=== PATIENT | male | born 1995 | race Caucasian/White ===

== ENCOUNTER 2022-09-27 17:11 | Emergency (ER) | payer OTHER, SELFPAY ==
--- NOTE | ~2022-09-27 | XR_ITS ---
EXAMINATION: XR shoulder RT min 2V DATE: 09/27/2022 18:15 INDICATION: Mechanical injury to the right shoulder with posterior right shoulder pain TECHNIQUE: AP internally and externally rotated, AP oblique externally rotated and transscapular Y vi ews of the affected shoulder were obtained. COMPARISON: None FINDINGS: Normal alignment. No fracture. Glenohumeral joint is normal. Acromioclavicular joint is normal. Soft tissues are unremarkable. Visualized portion of the lungs are clear. IMPRESSION: Normal right shoulder radiographs. Reviewed, dictated and finalized at location A.
[2022-09-27 17:13] VITALS: BP 139/86; PULSE 61; RESP 18; TEMP 36.6; O2SAT 99
--- NOTE | 2022-09-27 17:49 | ED.UPPEXIN ---
HPI - Extremity Injury (Upper) General Chief Complaint: Extremity Injury, Upper Stated Complaint: right shoulder pain Time Seen by Provider: 09/27/22 17:32 History of Present Illness HPI narrative: 27-year-old white male has had pain for the last 2 days of the right shoulder, reports no specific injury leading up to it, it just hurts. 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 He reports the pain is up in his shoulder, front top and back. Denies any specific injury in the past. Reports it hurts to move his arm in any direction at the shoulder. Denies any numbness or tingling of the rest of the extremity. Related Data Home Medications Medication Instructions Recorded Confirmed omeprazole 40 mg capsule,delayed 40 mg PO DAILY 09/27/22 09/27/22 release Allergies Allergy/AdvReac Type Severity Reaction Status Date / Time No Known Allergies Allergy Verified 09/27/22 17:24 Review of Systems Review of Systems: All systems reviewed & are unremarkable except as noted in HPI and below (in HPI) Exam Const: General: cooperative and no acute distress HENMT: Head: normal to inspection Face and sinus: normal facial exam Eyes: General: appearance normal, both eyes and all related structures Neck: Neck: normal visual inspection and full ROM Chest: Chest palpation & inspection: normal inspection of the chest Resp: Effort & Inspection: normal respiratory effort and able to speak in complete sentences Cardio: Jugular venous distension: no JVD Rate: regular rate Rhythm: regular rhythm Skin: General skin exam: normal color and no rashes or lesions noted Neuro: General: patient oriented x3 and Normal light touch and pain sensation Cranial nerves: Yes CN's II-XII intact bilaterally, Yes facial sensation intact/muscles of mastication intact and Yes Bilaterally intact EOM present Extrem: General: normal to inspection and full ROM Right upper extremity: full ROM, normal capillary refill and shoulder/upper arm ( there is diffuse tenderness over the anterior superior and posterior aspec); no edema and joint enlargement noted Other: there is good range of motion of the right shoulder, although with discomfort. There is no specific point tenderness, impingement test is negative distal neurovascular is intact Psych: Appearance: grossly normal Mental Status: mental status grossly normal Speech and movement: Normal speech and movement present Affect: normal affect Attitude: cooperative Thought process: Normal thought process present Insight: Good insight present (Psych) Judgement: Good judgement present (Psych) Course Course Emergency Course: differential diagnosis is includes but not limited to rotator cuff injury, bursitis, tendinitis, overuse inflammation of the shoulder, less likely fracture, less likely AC impingement. Will get x-ray x-rays are unremarkable, discussed with patient the need to rest the shoulder for few days, place in a sling, nonsteroidals, and follow-up with Ortho. Work note given for light duty differential diagnosis, workup, review of images, radiology report, initial treatment, diagnosis, treatment plan and disposition complexity and risk is low to moderate Vital Signs Vital signs: Vital Signs Temperature 36.6 C 09/27/22 17:13 Pulse Rate 61 09/27/22 17:13 Respiratory Rate 18 09/27/22 17:13 Blood Pressure 139/86 09/27/22 17:13 Pulse Oximetry 99 09/27/22 17:13 Oxygen Delivery Room Air 09/27/22 17:13 Temperature 36.8 C 09/27/22 19:50 Pulse Rate 49 L 09/27/22 19:50 Respiratory Rate 17 09/27/22 19:50 Blood Pressure 123/81 09/27/22 19:50 Pulse Oximetry 100 09/27/22 19:50 Oxygen Delivery Room Air 09/27/22 19:50 Discharge Plan Discharge Clinical Impression: Acute shoulder bursitis Patient Disposition: Home, Self-Care Condition: Stable Instructi
--- NOTE | 2022-09-27 19:16 | PC.NURSE ---
Assumed care of pt. Agree with previous shift assessment. Awaiting further orders at this time. Pt voices no new needs at this time.
[2022-09-27 19:25] VITALS: BP 126/78; PULSE 58; RESP 16; TEMP 36.4; O2SAT 98
--- NOTE | 2022-09-27 19:27 | PC.NURSE ---
Per Dr. Hurtado apply sling to RUE. Sling applied. Pt tolerates well. Pt verbalized understanding of use. Distal CMS intact post placement.
[2022-09-27 19:50] VITALS: BP 123/81; PULSE 49; RESP 17; TEMP 36.8; O2SAT 100
== END 2022-09-27 19:54 | disposition home or self-care (01) ==
PROVIDERS: Emergency Provider Emergency Medicine; PCP Internal Medicine
DX: M75.51 Bursitis of right shoulder (principal)
CPT/HCPCS: 73030; 99283

== ENCOUNTER 2023-08-15 10:57 | Outpatient (CLI) | payer OTHER, SELFPAY ==
--- NOTE | ~2023-08-15 | XR_ITS ---
EXAM: XR hip LT min 2V DATE: 08/15/2023 11:44 HISTORY: tailbone pain radiates to LT hip/groin, NKI . COMPARISON: None available. FINDINGS: Normal mineralization. No fracture or dislocation. No lytic or blastic lesion. Joint space s are maintained. No erosion or periosteal change. Soft tissues within normal limits. IMPRESSION: Normal left hip radiograph findings. Reviewed, dictated and finalized at location K.
--- NOTE | ~2023-08-15 | XR_ITS ---
EXAM: XR lumbar spine 2-3V DATE: 08/15/2023 11:44 HISTORY: LEFT HIP PAIN . COMPARISON: None available. FINDINGS: 5 nonrib-bearing lumbar-type vertebral bodies. Pedicles intact. Normal vertebral body alig nment. Mild anterior wedge deformity at L1, the remaining vertebral body heights are preserved. Mild height loss at L5-S1. Mild multilevel marginal osteophytosis. Normal facets and posterior elements. N o fracture or dislocation. IMPRESSION: Mild anterior wedge deformity at L1, difficulty by acute pain/tenderness or history of prior trauma. Mild multilevel degenerative disc disease. Reviewed, dictated and finalized at location K. IMPRESSION: Mild anterior wedge deformity at L1, difficulty by acute pain/tenderness or his tory of prior trauma. Mild multilevel degenerative disc disease.
[2023-08-15 11:20] LABS: Appearance Urine Clear (Clear); Bilirubin Urine Negative (Negative); Blood Urine Negative (Negative); Color Urine Light Yellow (Yellow); Glucose Urine UA Negative (Negative); Ketones Urine Negative (Negative); Leukocyte Esterase Ur Negative (Negative); Nitrate Urine Negative (Negative); Protein Urine Negative (Negative); Specific Grav Ur <= 1.005 (1.010-1.020); Urobilinogen Urine 0.2 mg/dL (0.2-1.0)
[2023-08-15 11:24] LABS: Add Urine Microscopic? NO
[2023-08-15 11:25] LABS: Basophils Absolute Auto 0.06 K/mm3 (0.00-0.10); Eosinophils Absolute Auto 0.19 K/mm3 (0.02-0.50); Eosinophils Percent Auto 3.3 % (1.0-6.0); Hematocrit 46.6 % (40.0-54.0); Hemoglobin 15.5 g/dL (14.0-18.0); Immature Granulocyte Absolute 0.03 K/mm3 (0.00-0.00); Immature Granulocyte Percent A 0.5 % (0.0-0.0); Lymphocytes Absolute Auto 1.68 K/mm3 (1.10-4.50); Lymphocytes Percent Auto 29.1 % (18.0-42.0); Mean Corpuscular HGB Conc 33.3 g/dL (32-36); Mean Corpuscular Hemoglobin 29.6 pg (27.0-31.0); Mean Corpuscular Volume 89.1 fL (78.0-102.0); Monocytes Absolute Auto 0.39 K/mm3 (0.10-0.90); Monocytes Percent Auto 6.8 % (2.0-11.0); Neutrophils Absolute Auto 3.42 K/mm3 (1.70-7.20); Neutrophils Percent Auto 59.3 % (50.0-70.0); Platelet Count Result 284 K/mm3 (150-420); Red Blood Count 5.23 M/mm3 (4.70-6.10); Red Cell Distribution Width 12.7 % (11.6-14.4); White Blood Count 5.8 K/mm3 (4.8-10.8)
[2023-08-15 12:12] LABS: Alanine Aminotransferase 27 U/L (16-63); Albumin Level 4.6 g/dL (3.4-5.0); Alkaline Phosphatase 79 U/L (46-116); Anion Gap 11 mmol/L (4-12); Aspartate Amino Transferase 28 U/L (15-37); Bilirubin,Total 0.4 mg/dL (0.00-1.00); Blood Urea Nitrogen 17 mg/dL (7-18); CRP 1.7 mg/dL (0.0-0.9); Calcium 9.3 mg/dL (8.5-10.1); Carbon Dioxide 26 mmol/L (21-32); Chloride 103 mmol/L (98-108); Estimated Glomerular Filt Rate > 60; Glucose 89 mg/dL (70-99); Osmolality Calculated 290 mOsm/kg (285-295); Potassium 4.8 mmol/L (3.5-5.1); Sodium 140 mmol/L (136-145); Total Protein 7.5 g/dL (6.4-8.2)
[2023-08-17 19:23] LABS: HLA B27 Positive (Negative)
[2023-08-17 21:23] LABS: Anti Cyclic Citrullinated Pept <16 Units (<20)
[2023-08-19 13:40] LABS: Anti Nuclear Antibody Pattern Nuclear, Speckled
== END 2023-08-15 10:58 | disposition home or self-care (01) ==
LOC: CHSLAB 11:02
PROVIDERS: PCP Internal Medicine; Visit Provider Internal Medicine
DX: M25.552 Pain in left hip (principal); M54.50 Low back pain, unspecified; M48.56XA Collapsed vertebra, not elsewhere classified, lumbar region, initial encounter for fracture; M51.36 Other intervertebral disc degeneration, lumbar region
CPT/HCPCS: 36415; 72100; 73502; 80053; 81003; 85025; 86038; 86039; 86140; 86200; 86812

== ENCOUNTER 2024-01-02 17:47 | Emergency (ER) | payer OTHER, SELFPAY ==
[2024-01-02 17:55] VITALS: BP 125/87; PULSE 62; RESP 18; TEMP 33.6; O2SAT 98
[2024-01-02 18:23] LABS: Basophils Absolute Auto 0.07 K/mm3 (0.00-0.10); Basophils Percent Auto 0.7 % (0.0-1.0); Eosinophils Absolute Auto 0.29 K/mm3 (0.02-0.50); Eosinophils Percent Auto 2.7 % (1.0-6.0); Hematocrit 44.5 % (40.0-54.0); Hemoglobin 15.6 g/dL (14.0-18.0); Immature Granulocyte Absolute 0.05 K/mm3 (0.00-0.00); Immature Granulocyte Percent A 0.5 % (0.0-0.0); Lymphocytes Absolute Auto 2.65 K/mm3 (1.10-4.50); Lymphocytes Percent Auto 24.9 % (18.0-42.0); Mean Corpuscular HGB Conc 35.1 g/dL (32-36); Mean Corpuscular Hemoglobin 30.8 pg (27.0-31.0); Mean Corpuscular Volume 87.9 fL (78.0-102.0); Mean Platelet Volume 9.7 fl (8.7-11.0); Monocytes Absolute Auto 0.65 K/mm3 (0.10-0.90); Monocytes Percent Auto 6.1 % (2.0-11.0); Neutrophils Absolute Auto 6.95 K/mm3 (1.70-7.20); Neutrophils Percent Auto 65.1 % (50.0-70.0); Platelet Count Result 290 K/mm3 (150-420); Red Blood Count 5.06 M/mm3 (4.70-6.10); Red Cell Distribution Width 12.2 % (11.6-14.4); White Blood Count 10.7 K/mm3 (4.8-10.8)
[2024-01-02 18:46] LABS: Add Urine Microscopic? NO; Appearance Urine Clear (Clear); Bilirubin Urine Negative (Negative); Blood Urine Negative (Negative); Color Urine Light Yellow (Yellow); Glucose Urine UA Negative (Negative); Ketones Urine Negative (Negative); Leukocyte Esterase Ur Negative LEU/UL (Negative); Nitrate Urine Negative (Negative); Protein Urine Negative (Negative); Specific Grav Ur 1.025 (1.010-1.020); Urobilinogen Urine 0.2 mg/dL (0.2-1.0)
[2024-01-02] MEDS: NICOTINE (*PBKC) 21 MG PATCH 1 PATCH TRANSDERM (18:47)
[2024-01-02 18:52] LABS: Amphetamine Screen Urine Negative (Negative); Barbiturate Screen Urine Negative (Negative); Benzodiazepines Screen Urine Negative (Negative); Cannabinoid Screen Urine Positive (Negative); Cocaine Screen Urine Negative (Negative); Methadone Screen Urine Negative (Negative); Opiate Screen Urine Negative (Negative); Phencyclidine Screen Urine Negative (Negative)
[2024-01-02 18:54] LABS: Alanine Aminotransferase 20 U/L (16-63); Albumin Level 4.6 g/dL (3.4-5.0); Alkaline Phosphatase 78 U/L (46-116); Anion Gap 10 mmol/L (4-12); Aspartate Amino Transferase 19 U/L (15-37); Bilirubin,Total 0.6 mg/dL (0.00-1.00); Blood Urea Nitrogen 16 mg/dL (7-18); Calcium 9.8 mg/dL (8.5-10.1); Carbon Dioxide 28 mmol/L (21-32); Chloride 101 mmol/L (98-108); Estimated CRCL calculation 91 ml/min; Estimated Glomerular Filt Rate > 60; Ethanol < 3 mg/dL (0-6); Glucose 90 mg/dL (70-99); Osmolality Calculated 289 mOsm/kg (285-295); Potassium 4.1 mmol/L (3.5-5.1); Sodium 139 mmol/L (136-145); Thyroid Stimulating Hormone 4.24 uIU/mL (0.36-3.74); Total Protein 8.1 g/dL (6.4-8.2)
[2024-01-02 18:55] LABS: Acetaminophen < 2 ug/mL (10-30)
--- NOTE | 2024-01-02 18:58 | PC.NURSE ---
DAEV AT [facility] HAS BEEN NOTIFIED THAT PT HAS BEEN MEDICALLY CLEARED.
--- NOTE | 2024-01-02 19:00 | PC.NURSE ---
assumed care. report received from elza euceda
--- NOTE | 2024-01-02 19:05 | PC.NURSE ---
patient is resting on stretcher with friend in the room. calm and cooperative. sitter outside the room.
--- NOTE | 2024-01-02 19:15 | PC.NURSE ---
documentation faxed to [facility] per mental health request
[2024-01-02 19:16] LABS: SARS-CoV-2 RNA PCR Negative (Negative)
[2024-01-02 19:17] LABS: Influenza A QL RT-PCR Negative (Negative); Influenza B QL RT-PCR Negative (Negative); RSV RNA, RT-PCR Negative (Negative)
--- NOTE | 2024-01-02 19:43 | PC.NURSE ---
OUMAR FROM [facility] CALLS, REQUESTING PAPERWORK BE FAXED TO [facility] AT [phone]. AWAITING ERP DOCUMENTATION TO FAX.
--- NOTE | 2024-01-02 19:44 | ED.PSYCH ---
HPI - Psych General Chief Complaint: Psychiatric Symptoms <Mor Guevara MD - Last Filed: 01/02/24 20:42> Stated Complaint: SUICIDAL <Mor Guevara MD - Last Filed: 01/02/24 20:42> Time Seen by Provider: 01/02/24 17:52 <Mor Guevara MD - Last Filed: 01/02/24 20:42> Source: patient <Mor Geuvara MD - Last Filed: 01/02/24 20:42> Mode of arrival: ambulatory <Mor Guevara MD - Last Filed: 01/02/24 20:42> Limitations: no limitations <Mor Guevara MD - Last Filed: 01/02/24 20:42> History of Present Illness HPI Narrative: patient is a 20-year-old male with a significant past medical history that presents today with suicidal ideations. Patient states that he has been very depressed lately and had suicidal ideations. He says that he did have a plan and he is plan was to take pills to fall sleep and never wake up. However he did say he does not have access to these and pills that could make him fall asleep I guess. He says he has just felt very depressed and down which made her feel suicidal. He has had this in the past. He denies any homicidal ideations. He did call a suicide hotline and talk to them and they told him to come to the emergency department. <Mor Guevara MD - Last Filed: 01/02/24 20:42> MD complaint: suicidal ideation and feels depressed <Mor Guevara MD - Last Filed: 01/02/24 20:42> Onset (ago): day(s) <Mor Guevara MD - Last Filed: 01/02/24 20:42> Duration: constant <Mor Guevara MD - Last Filed: 01/02/24 20:42> History of same: Yes <Mor Guevara MD - Last Filed: 01/02/24 20:42> Relieving factors: none <Mor Guevara MD - Last Filed: 01/02/24 20:42> Exacerbating factors: none <Mor Guevara MD - Last Filed: 01/02/24 20:42> Associated psychiatric symptoms: depression and suicidal ideation <Mor Guevara MD - Last Filed: 01/02/24 20:42> Associated symptoms: denies other symptoms <Mor Guevara MD - Last Filed: 01/02/24 20:42> Treatments prior to arrival: none <Mor Guevara MD - Last Filed: 01/02/24 20:42> If self harm: admits thoughts of self harm and has plan <Mor Guevara MD - Last Filed: 01/02/24 20:42> Related Data Home Medications: Home Medications Medication Instructions Recorded Confirmed omeprazole 40 mg capsule,delayed 40 mg PO DAILY 09/27/22 01/02/24 release <Mor Guevara MD - Last Filed: 01/02/24 20:42> Allergies/Adverse Reactions: Allergies Allergy/AdvReac Type Severity Reaction Status Date / Time No Known Allergies Allergy Verified 01/02/24 18:26 <Mor Guevara MD - Last Filed: 01/02/24 20:42> Review of Systems Review of Systems: All systems reviewed & are unremarkable except as noted in HPI and below <Mor Guevara MD - Last Filed: 01/02/24 20:42> Constitutional: Constitutional: Reports as per HPI <Mor Guevara MD - Last Filed: 01/02/24 20:42> Eyes: Eyes: Reports no additional eye complaints <Mor Guevara MD - Last Filed: 01/02/24 20:42> ENT: Reports system reviewed and no additional complaints, except as documented <Mor Guevara MD - Last Filed: 01/02/24 20:42> Cardiovascular: Cardiovascular: Reports no additional cardiovascular complaints <Mor Guevara MD - Last Filed: 01/02/24 20:42> Respiratory: Respiratory: Reports no additional respiratory complaints <Mor Guevara MD - Last Filed: 01/02/24 20:42> Gastrointestinal: Gastrointestinal: Reports no additional gastrointestinal complaints <Mor Guevara MD - Last Filed: 01/02/24 20:42> Genitourinary: Genitourinary: Reports no additional male genitourinary complaints <Mor Guevara MD - Last Filed: 01/02/24 20:42> Musculoskeletal: Musculoskeletal: Reports no additional musculoskeletal complaints <Mor Guevara MD - Last Filed: 01/02/24 20:42> Integumentary/Breasts: Skin/Breast: Reports system reviewed
--- NOTE | 2024-01-02 20:00 | PC.NURSE ---
patient is sitting up on stretcher. eating food that was given to him. friend is at the bedside. sitter at the doorway. calm and cooperative at this time.
--- NOTE | 2024-01-02 20:01 | PC.NURSE ---
paperwork faxed to [facility]
--- NOTE | 2024-01-02 20:25 | PC.NURSE ---
Meenakshi with [facility] reports that patient has been accepted at their facility. Requesting physician notes to be faxed to her.
--- NOTE | 2024-01-02 20:40 | PC.NURSE ---
Paperwork received from [facility]. Patti sena notified of new paper work that was requested to be filled out
[2024-01-02 20:58] VITALS: BP 130/76; PULSE 62; RESP 18; TEMP 37; O2SAT 98
--- NOTE | 2024-01-02 21:16 | PC.NURSE ---
Patient requested something for sleep. Dr Guevara has been notified.
--- NOTE | 2024-01-02 21:40 | PC.NURSE ---
Dr Guevara aware that patient is requesting something for sleep. Awaiting new orders
--- NOTE | 2024-01-02 22:08 | PC.NURSE ---
patient is resting quietly on stretcher. sitter by the door. waiting on [address] for additional documentation that is required from [facility].
[2024-01-02] MEDS: ZOLPIDEM TARTRATE (*CRX) 5 MG TABLET PO (22:22)
--- NOTE | 2024-01-02 22:54 | PC.NURSE ---
physicians note faxed to [facility]. Continue to wait for Patti Tovar for additional paperwork
--- NOTE | 2024-01-02 23:36 | PC.NURSE ---
patient appears to be sleeping. resp even and unlabored. sitter by the door.
--- NOTE | 2024-01-03 00:25 | PC.NURSE ---
patient appears to be sleeping. resp even and unlabored. sitter at the doorway.
--- NOTE | 2024-01-03 01:30 | PC.NURSE ---
resting quietly on stretcher. respirations even and unlabored. sitter by the door.
--- NOTE | 2024-01-03 02:34 | PC.NURSE ---
this RN called [facility]. [employer] reports that the paperwork that was faxed to this RN is to be filled out when patient arrives at [facility]. She will call her purification supervisor and call this RN back
[2024-01-03 02:48] VITALS: BP 122/68; PULSE 70; RESP 18; TEMP 36.8; O2SAT 98
--- NOTE | 2024-01-03 03:17 | PC.NURSE ---
patient is resting quietly on stretcher. sitter by the door. resp even and unlabored.
--- NOTE | 2024-01-03 03:44 | PC.NURSE ---
requested paperwork faxed back to [facility]
--- NOTE | 2024-01-03 04:55 | PC.NURSE ---
patient awake in room. drinking coffee. sitter by the door. calm and cooperative.
--- NOTE | 2024-01-03 05:37 | PC.NURSE ---
patient resting on stretcher. calm and cooperative. sitter by the door
[2024-01-03 05:51] VITALS: BP 126/70; PULSE 68; RESP 18; TEMP 36.7; O2SAT 98
--- NOTE | 2024-01-03 06:40 | PC.NURSE ---
patient resting on stretcher. consent for transfer signed and placed on chart. copy made for EMS and placed with transport paperwork. calm and cooperative. sitter by the door.
--- NOTE | 2024-01-03 07:01 | PC.NURSE ---
report given to [facility] and [facility]
--- NOTE | 2024-01-03 07:13 | PC.NURSE ---
7:05 Called [facility] to page out rig for Pt transport. 07:13 [facility] refusing transport at this time. State they only have one rig available at this time. Other rig on run from [place] to [place].
--- NOTE | 2024-01-03 07:18 | PC.NURSE ---
7:13am Requested transport from [facility]. Said they will page it out.
--- NOTE | 2024-01-03 07:29 | PC.NURSE ---
07:29 Bossman from [facility] declined transport for pt.
--- NOTE | 2024-01-03 07:30 | PC.NURSE ---
07:30 Called [facility] to request transport. Will call us back.
--- NOTE | 2024-01-03 07:35 | PC.NURSE ---
07:34 [facility] called back. Refused.
--- NOTE | 2024-01-03 07:38 | PC.NURSE ---
07:[facility]
--- NOTE | 2024-01-03 07:40 | PC.NURSE ---
07:40 Called [facility]. They refused.
--- NOTE | 2024-01-03 07:42 | PC.NURSE ---
07:42 [facility]
--- NOTE | 2024-01-03 07:43 | PC.NURSE ---
07:43 Called [facility]. They refused.
--- NOTE | 2024-01-03 07:45 | PC.NURSE ---
07:44 Called [facility]. They will call us back.
--- NOTE | 2024-01-03 09:20 | PC.NURSE ---
Called [facility] for update.
--- NOTE | 2024-01-03 09:42 | PC.NURSE ---
[id number]
--- NOTE | 2024-01-03 11:05 | PC.NURSE ---
[facility] called back and said that they are on their way.
--- NOTE | 2024-01-03 11:30 | PC.NURSE ---
[facility] called and said that they would be able to transport pt.
--- NOTE | 2024-01-03 11:37 | PC.NURSE ---
Took pt his lunch tray. Pt resting comfortably in his stretcher. Sitter at door.
--- NOTE | 2024-01-03 11:53 | PC.NURSE ---
11:30am got call from [facility] saying they could take pt to [place]. Spoke to pt. He says that he prefers to have outpatient therapy. I explained the benefits of going to an in-pt facility. Pt states he is feeling better today. He states that he understands that he needs counseling and will seek it on an out pt basis. I called [facility] to get an ETA. They told me that Мария would be here in 13 mins. I told [facility] that we would call them back once a decision was made about what the pt was going to do.
--- NOTE | 2024-01-03 11:55 | PC.NURSE ---
Susana From [facility] has arrived and is re-evaluating ptAdriane
--- NOTE | 2024-01-03 12:02 | PC.NURSE ---
Susana from [facility] at bedside.
--- NOTE | 2024-01-03 12:47 | PC.NURSE ---
Called Patti Tovar to ask them to come re-evaluate pt because pt is saying that he wants to leave and schedule out pt services.
[2024-01-03 12:55] VITALS: BP 129/92; PULSE 64; RESP 20; TEMP 36.5; O2SAT 100
== END 2024-01-03 12:52 | disposition home or self-care (01) ==
PROVIDERS: Family Medicine; Emergency Provider Internal Medicine Critical Care Medicine; PCP Internal Medicine
DX: F32.A Depression, unspecified (principal); R45.851 Suicidal ideations; Z20.822 Contact with and (suspected) exposure to COVID-19; Z79.899 Other long term (current) drug therapy
CPT/HCPCS: 36415; 80053; 80307; 81003; 84443; 85025; 87637; 99284; A9270